=== PATIENT | female | born 1965 | race African-American/Black ===

== ENCOUNTER 2017-06-28 09:02 | Outpatient (CLI) | payer BC ==
--- NOTE | ~2017-06-28 | CN ---
PATIENT NAME:DILLON HENRIQUEZ MEDICAL RECORD: [id number] : 63 LOCATION:[facility] ADMIT DATE: ACCOUNT: [id number] CONSULTING PHYSICIAN: CHRISTIAN OQUENDO MD REFERRING PHYSICIAN: CHELSEA BOX MD DATE OF CONSULTATION: 06/28/2017 ADMITTING DIAGNOSES: 1. Chest discomfort. 2. Family history of coronary artery disease. HISTORY OF PRESENT ILLNESS: Ms. Henriquez had the onset of severe chest discomfort, very compatible with angina, dull aching, crushing like an elephant sitting on her chest sensation earlier today. It was relieved with nitro, pain is coming back. She has no previous cardiac history, has no previous cardiac evaluation. She does have an IODINE ALLERGY. REVIEW OF SYSTEMS: The patient reports easy bruising but reports no swollen glands. The patient reports no fever, no night sweats, no significant weight gain, no significant weight loss. No significant exercise tolerance. The patient reports no dry eyes, no irritation, no vision change. Patient reports no difficulty hearing and no ear pain. Patient reports no frequent nose bleeds or nose and sinus problems. Patient reports on arm pain on exertion. No shortness of breath while lying down. No history of heart murmur. Patient reports no cough, no wheezing or coughing up blood. Patient reports no abdominal pain, no vomiting. Normal appetite. No diarrhea and not vomiting blood. No nausea and no constipation. Patient reports no incontinence. No difficulty urinating. No hematuria. No increased frequency. Patient reports no muscle aches. No weakness, no arthralgias, no back pain. No swelling of the extremities. Patient reports no abnormal mole, no jaundice, no rashes. Reports no loss of consciousness. No weakness and no numbness. No seizures, dizziness, or headaches. The patient reports no depression, no sleep disturbance, feeling safe in a relationship and no alcohol abuse. Patient reports on fatigue. Reports no runny nose or sinus pressure. No itching, no hives, and no frequent sneezing. PHYSICAL EXAMINATION: GENERAL APPEARANCE: Well-nourished, well-developed, appears stated age. Level of distress, comfortable. PSYCHIATRIC: Mental status, alert, normal affect. Orientation, oriented to time, place and person. EYES: Lids and conjunctiva, noninjected. No discharge, no pallor. ENT: Lips, teeth, gums, normal dentition. Oropharynx, no cyanosis, no pallor. NECK: Carotid arteries, bilateral normal upstroke, no bruits, no thrills. JUGULAR VEINS: No jugular venous pressure or distention. CERVICAL LYMPH NODES: Nontender, nonenlarged. THYROID: Not enlarged. Nontender. No nodules. LUNGS: Respiratory effort, unlabored. CHEST: Normal curvature. No thoracic deformity. No chest wall tenderness. Percussion, resonant. Auscultation, clear. No wheezes, no rales, no rhonchi. CARDIOVASCULAR: Precordial exam, nondisplaced. No heaves or pericardial thrills. Rate and rhythm, regular. Heart sounds, normal S1, normal S2. No S3, no gallop, no rub. Systolic murmur, not heard. Diastolic murmur, not heard. EXTREMITIES: No cyanosis, no edema. Peripheral pulses, full and equal in all extremities, except as noted. No bruits appreciated. CONSULT REPORT [id number] DILLON HENRIQUEZ ABDOMEN: Soft, nondistended. Normal aorta. No bruit. Nontender. No masses. Liver, nontender, no hepatomegaly. Spleen, nontender, no splenomegaly. MUSCULOSKELETAL: No joint tenderness. No joint swelling. No erythema. NEUROLOGICAL: Normal gait, normal strength, normal tone. SKIN: Warm and dry. OVERALL IMPRESSION: We will premedicate for the IODINE ALLERGY. Proceed with coronary angiography. Further care depends upon findings of the angiography. TRANSINT:[id number] Voice Confirmation ID: [id number] DOCUMENT ID: [id number] CHRISTIAN OQUENDO MD at 1148 CC: [id number] DICTATION DATE: 06/28/17 1040 IMAGING TECH: 06/28/17 1052 [facility] [address] [place] [address]
--- NOTE | ~2017-06-28 | HEMODYNAMI ---
PATIENT:DILLON SOLIS MEDICAL RECORD: [id number] : 63 LOCATION:[facility] ADMISSION DATE: 06/28/17 Generatedon:06/28/201713:18 Patient name: DILLON SOLIS Patient #: [id number] SSN: D OB: 1965 Date of study: 06/28/2017 Page: Of Hemodynamic Procedure Report Patient Data Patient Demographics Procedure consent was obtained First Name: DILLON Gender: Female Last Name: WILL : 1965 Patient #: [id number] Age: 51 year(s) Race: Black Additional ID: [id number] Contact details [address]: [address] [place] [address] State: [place] City: [place] Zip code: [address] Past Medical History Allergies: No known allergies Admission Admission Data Admission Date: 06/28/2017 Admission Time: 9:02 Arrival Date: 06/28/2017 Arrival Time: 9:02 Admit Source: Other Insurance Payor: Medicaid Procedure Procedure Types Cath Procedure Diagnostic Procedure LHC LH w/Coronaries Miscellaneous Procedures Procedure Description Procedure Date Procedure Date: 06/28/2017 Procedure Start Time: 13:05 Procedure End Time: 13:13 Procedure Staff Name Function Samy Velásquez MD Performing Physician Sugar Bond RN Supervisor [employer] Madalyn Rojas RT Monitor Amada Marcum RN Nurse Noa Delgado RT Scrub Procedure Data Cath Procedure Fluoroscopy Diagnostic fluoroscopy Total fluoroscopy Time: 2 time: 2 min min Diagnostic fluoroscopy Total fluoroscopy dose: 375 dose: 375 mGy mGy Contrast Material Contrast Material Type Amount (ml) Isovue 300 39 Entry Location Entry Primary Successful Side Size Upsize Upsize Entry Closure Duff ccessful Closure Location (Fr) 1 (Fr) 2 (Fr) Remarks Device Remarks Radial Right 6 Fr Mechanical artery Short Compression Estimated blood loss: 5 ml Diagnostic catheters Device Type Used For End Catheter Placement DIAGNOSTIC Nageezi 110cm 5 Multi-vessel Fr catheter ([id number]) Angiography Procedure Complications No complications Procedure Medications Medication Administration Route Dosage Oxygen NC 2 l/min Lidocaine 2% added to field 20 Heparin Flush Bag added to field 2 bags (1000units/500ml NS) 0.9% NaCl I.V. 100 ml/hr Versed I.V. 1 mg Fentanyl I.V. 50 mcg Versed I.V. 1 mg Fentanyl I.V. 50 mcg Radial Cocktail I.A. 1 syringe (Verapomil 2mg/Nitro 400mcg/Heparin 1500units) Versed I.V. 1 mg Fentanyl I.V. 50 mcg Hemodynamics Rest Heart Rate: 80 (bpm) Pressure Samples Time Site Value (mmHg) Purpose Heart Use Rate(bpm) 13:08 LV 55/30,24 Snapshot 142 Snapshots Pre Cath Intra NCS Post Cath Vital Signs Time Heart Resp SPO2 etCO2 NIBP Rhythm Pain Sedation Rate (ipm) (%) (mmHg) (mmHg) Status Level (bpm) 12:56:58 74 14 100 36 115/73(94) NSR 0 (11) 10(A) , No pain 13:01:12 82 14 100 32.3 102/68(94) NSR 0 (11) 10(A) , No pain 13:05:18 83 15 97 29.3 106/73(87) NSR 0 (11) 9(A) , No pain 13:11:41 93 15 96 35.3 104/75(0) NSR 0 (11) 10(A) , No pain Medications Time Medication Route Dose Verified Delivered Reason Notes Effectiveness by by 12:58:47 Oxygen NC 2 l/min Samy Rockie used for Christen Bond RN procedure 12:58:55 Lidocaine 2% added 20ml Samy Buffie for local to vial Christen Bond RN anesthetic field 12:59:02 Heparin Flush added 2 bags Samy Buffie used for Bag to Christen Bond RN procedure (1000units/500ml field NS) 12:59:10 0.9% NaCl I.V. 100 Samy Buffie Per ml/hr Christen Bond RN physician 12:59:19 Versed I.V. 1 mg Samyboo Rockie for sedation Christen Bodn RN 12:59:25 Fentanyl I.V. 50 mcg Samy Wooten for sedation Christen Bond RN 13:04:35 Versed I.V. 1 mg Samy Rockie for sedation Christen Bond RN 13:04:38 Fentanyl I.V. 50 mcg Samy Wooten for sedation Christen Bond RN 13:07:16 Radial Cocktail I.A. 1 Samy Pablo for (Verapomil syringe Christen Velásquez MD vasodilation 2mg/Nitro 400mcg/Heparin 1500units) 13:08:08 Fentanyl I.V. 50 mcg Samy Wooten for sedation Christen Bond RN 13:08:50 Versed I.V. 1 mg Samy Wooten for sedation Christen Bond RN Procedure Log Time Note 12:32:52 Sugar Bond RN sent for patient. Start room use. 12:32:53 Time tracking: Regular hours 12:32:57 Plan of Care:Hemodynamics will remain stable., Cardiac rhythm will remain stable., Comfort level will be maintained., Respiratory function will remain adequate., Patient/ family verbilizes understanding of procedure., Procedure tolerated without complication., Recovers from procedure without complications.. 12:39:28 Diagnostic Cath Status : Emergency 12:39:39 Admit Source: Other 12:41:39 Arrival Date: 06/28/2017 9:02:00 AM 12:41:46 Insurance Payor : Medicaid 12:50:33 Patient received from ED to CCL 2 Alert and oriented. Tansferred to table in Supine position. 12:50:34 Warm blankets applied, and devaughn hugger turned on for patient comfort. 12:50:34 Correct patient and procedure confirmed by team. 12:50:35 Signed procedure consent form obtained from patient. 12:50:36 ECG and BP/O2 sat monitors applied to patient. 12:55:53 Vital chart was started 12:55:57 Rhythm: sinus rhythm 12:55:58 Full Disclosure recording started 12:56:07 H&P Date Dictated: 06/28/2017 Within 30 days and on chart., ER History on chart.. 12:56:08 Pre-procedure instructions explained to patient. 12:56:09 Pre-op teaching completed and patient verbalized understanding. 12:56:10 Family in waiting room. 12:56:13 Patient NPO since Midnight. 12:56:32 Patient allergic to No known allergies 12:56:36 Is the patient allergic to Iodine/contrast media? Yes. 12:56:43 Was the patient premedicated? Yes 12:56:45 Is patient on blood thinner?No 12:56:47 Patient diabetic? No. 12:56:50 Previous problem with sedation/anesthesia? No ? 12:56:51 Snore? Yes 12:56:52 Sleep apnea? No 12:56:53 Deviated septum? No 12:56:54 Opens mouth fully? Yes 12:56:55 Sticks out tongue? Yes 12:56:57 Airway obstruction? No ? 12:56:59 Dentures? Yes in 12:57:02 Pre procedure: right dorsailis pedis pulse 2+ Normal; easily identifiable; not easily obliterated 12:57:05 Modified Jerardo's test Ulnar < 7 seconds 12:57:07 Patient pain scale 0/10 ?. 12:57:21 IV patent on arrival in left forearm with 0.9% NaCl at [facility]. 12:57:24 Lab results completed and on chart. 12:57:27 Right Radial & Right Groin area was prepped with chlora-prep and draped in sterile fashion 12:57:28 Alarms reviewed by R. N. 12:57:28 Sharps counted by scrub and verified by R.N. 12:57:31 Use device set Radial Dx or PCI 12:57:32 ACIST Syringe (63658) opened to sterile field. 12:57:32 Medline Cath Pack ([id number]) opened to sterile field. 12:57:33 Bag Decanter (2002S) opened to sterile field. 12:57:33 SHEATH 6FR Slender ([id number]) opened to sterile field. 12:57:33 DIAGNOSTIC WIRE .035 260cm J wire (589646) opened to sterile field. 12:57:34 ACIST Hand Control (53279) opened to sterile field. 12:57:34 ACIST Manifold (01929) opened to sterile field. 12:57:36 Tegaderm 4 x 4 (1626W) opened to sterile field. 12:57:37 MBrace Wrist Support ([id number]) opened to sterile field. 12:58:45 Physician arrived 12:58:45 --------ALL STOP TIME OUT------ 12:58:46 Final Timeout: patient, procedure, and site verified with staff and physician. All members of the team are in agreement. 12:58:47 Oxygen 2 l/min NC was administered by Buffie Bond RN; used for procedure; 12:58:48 Right Radial & Right Groin site verified by team. 12:58:50 Physical assessment completed. ASA score P 2 - A patient with mild systemic disease as per Samy Velásquez MD. 12:58:55 Lidocaine 2% 20ml vial added to field was administered by Sugar Bond RN; for local anesthetic; 12:58:55 Sedation plan: IV Moderate Sedation Medication:Versed, Fentanyl 12:59:02 Heparin Flush Bag (1000units/500ml NS) 2 bags added to field was administered by Sugar Bond RN; used for procedure; 12:59:10 0.9% NaCl 100 ml/hr I.V. was administered by Sugar Bond RN; Per physician; 12:59:19 Versed 1 mg I.V. was administered by Sugar Bond RN; for sedation; 12:59:25 Fentanyl 50 mcg I.V. was administered by Sugar Bond RN; for sedation; 13:01:34 Zero performed for pressure channel P1 13:01:39 Zero performed for pressure channel P1 13:01:50 Baseline sample Acquired. 13:04:35 Versed 1 mg I.V. was administered by Sugar Bond RN; for sedation; 13:04:38 Fentanyl 50 mcg I.V. was administered by Sugar Bond RN; for sedation; 13:05:48 Procedure started. 13:05:59 Local anesthetic to right radial artery with Lidocaine 2% by Samy Velásquez MD.INITIAL ACCESS ONLY 13:06:26 A 6 Fr Short sheath was inserted into the Right Radial artery 13:06:43 A DIAGNOSTIC Nageezi 110cm 5 Fr catheter (610206) was advanced over the wire and used for Multi-vessel Angiography. 13:07:16 Radial Cocktail (Verapomil 2mg/Nitro 400mcg/Heparin 1500units) 1 syringe I.A. was administered by Samy Velásquez MD; for vasodilation; 13:08:08 Fentanyl 50 mcg I.V. was administered by Sugar Bond RN; for sedation; 13:08:40 LV hemodynamics recorded. 13:08:40 LV gram done using ZALDIVAR 13:08:45 EF : 60 % 13:08:50 Versed 1 mg I.V. was administered by Sugar Bond RN; for sedation; 13:08:55 RCA angiography performed. 13:09:04 Injector settings: Ml/sec: 3, Volume: 6, 13:09:27 Catheter removed. 13:10:17 GUIDE 6FR XBLAD 3.5 catheter ([id number]) opened to sterile field. 13:10:30 LCA angiography performed. 13:10:34 Injector settings: Ml/sec: 3, Volume: 6, 13:10:56 Catheter removed. 13:11:07 TR BAND Standard ([id number]) opened to sterile field. 13:11:18 Sheath removed intact; hemostasis achieved with Mechanical Compression to the Right Radial artery. 13:11:20 Procedure ended.(Physican Out) 13:11:51 Fluoroscopy time 02.00 minutes. 13:11:57 Fluoroscopy dose: 375 mGy 13:11:57 Flurop Dose total: 375 13:12:02 Contrast amount:Isovue 300 39ml. 13:12:03 Sharps counted by scrub and verified by R.N. 13:12:06 TR band inflated with 10cc of air. 13:12:15 Insertion/operative site no bleeding no hematoma. 13:12:22 Post right radial artery:stable 13:12:24 Post Procedure Pulses reassessed and unchanged 13:12:35 Post procedure rhythm: unchanged. 13:12:37 Estimated blood loss: 5 ml 13:12:39 Post procedure instruction explained to patient.Patient verbalizes understanding. 13:12:39 Patient needs reinforcement of post procedure teaching. 13:13:02 Procedure type changed to Cath procedure, Diagnostic procedure, LHC, LHC w/Coronaries, Miscellaneous Procedures 13:13:04 Procedure and supply charges have been captured, reviewed, submitted and are correct. 13:13:08 Procedure Complication : No complications 13:13:11 Vital chart was stopped 13:13:11 See physician's report for complete and final results. 13:13:37 Report given to Pre/Post Procedure Room. 13:13:40 Patient transfered to Pre/Post Procedure Room with Stretcher. 13:13:42 Full Disclosure recording stopped 13:13:45 End room use (Document Last) 13:14:42 Procedure ended. Device Usage Item Name Manufacture Quantity Catalog Hospital Part Current Minima l Lot# / Number Charge Number Stock Stock Serial# Code ACIST Acist 1 27321 [id number] 129723 458555 20 PlantSense (44704) Systems Inc Medline Cath Cardinal 1 [id number] 125108 17244 758336 5 Pack Health ([id number]) Bag Decanter Microtek 1 2001S 586683 81084 466885 5 (2001S) Medical Inc. SHEATH 6FR Terumo 1 [id number] 859104 536302 210617 40 Slender ([id number]) DIAGNOSTIC St Saurabh 1 722850 177494 242785 095048 30 WIRE .035 260cm J wire (779510) ACIST Hand Acist 1 66900 005669 159864 585281 5 Control Medical (14860) Systems Inc ACIST Acist 1 71206 445195 599740 318649 5 Manifold Medical (24982) Systems Inc Tegaderm 4 x 3M 1 1626W 794730 165968 182078 5 4 (1626W) MBrace Wrist Advanced 1 140-0250-00 865258 45446 931483 5 Support Vascular ([id number]) Dynamics DIAGNOSTIC Terumo 1 40-3003 433587 246667 112954 5 Nageezi 110cm 5 Fr catheter (024397) GUIDE 6FR Cardinal 1 [id number] 640408 597141 565581 10 XBLAD 3.5 Health catheter (69618101) TR BAND Terumo 1 [id number] 925538 579309 278874 40 Standard ([id number]) Signature Audit [place] Stage Time Signature Unsigned Intra-Procedure 06/28/2017 Madalyn Rojas 1:18:30 PM RT(R) Signatures Monitor : Madalyn Rojas RT Signature : Date : Time : [facility] [address] [place] [address]
--- NOTE | ~2017-06-28 | OP ---
PATIENT NAME: DILLON SOLIS MEDICAL RECORD: [id number] :63 LOCATION:[facility] ADMISSION DATE: SURGEON: CHRISTIAN OQUENDO MD DATE OF OPERATION: 06/28/2017 PROCEDURES: 1. Left heart catheterization. 2. Selective coronary angiography. 3. Left ventriculogram. INDICATION: Chest pain of unknown etiology. PROCEDURE IN DETAIL: After informed consent was obtained and after detailed explanation of risks, benefits as well as alternative therapies, the patient elected to proceed with angiogram and heart catheterization. The right radial area was prepped and draped in normal sterile fashion. Right radial artery was cannulated via modified Seldinger technique with placement of 5-Hebrew sheath. All catheters exchanged through this sheath. FINDINGS: Left ventriculogram was performed in standard 30-degree ZALDIVAR view, reveals good cardiac wall motion throughout all segments. Overall ejection fraction estimated 60%. SELECTIVE CORONARY ANGIOGRAPHY: Left main, left anterior descending, left circumflex, and right coronary artery are all smooth-walled vessels with no angiographic evidence of coronary artery disease. OVERALL IMPRESSION: No angiographic evidence of coronary artery disease. Normal left heart pressures. Chest pain is noncardiac in etiology. No further cardiac workup needs to be ascertained. TRANSINT:[id number] Voice Confirmation ID: [id number] DOCUMENT ID: [id number] CHRISTIAN OQUENDO MD CC: [id number] DICTATION DATE: 06/28/17 1314 LEARNING ENGINEER: 06/28/17 1320 [facility] [address] [place] [id number]
[2017-06-28 09:43] LABS: BASOPHILS 0.3 % (0-2); EOSINOPHILS 1.2 % (0-7); HEMATOCRIT 35.3 % (36.0-48.0); HEMOGLOBIN 11.3 g/dL (12-16); IMMATURE GRANULOCYTES 0.2 % (0-5); LYMPHOCYTES 19.9 % (15-50); MCH 27.8 pg (26.0-34.0); MCV 86.9 fL (80.0-100.0); MONOCYTES 5.8 % (2-11); NEUTROPHILS 72.6 % (40-80); PLATELET COUNT 205 10x3/uL (130-400); RBC 4.06 10x6/uL (4.00-5.40); WBC 5.8 10x3/uL (4.8-10.8)
[2017-06-28 09:56] LABS: ALBUMIN 3.8 g/dL (3.4-5.0); ALKALINE PHOSPHATASE 91 U/L (46-116); ALT (SGPT) 28 U/L (10-68); BILIRUBIN - TOTAL 0.25 mg/dL (0.2-1.3); CALC OSMOLALITY 276 mosm/kg (275-300); CALCIUM 9.6 mg/dL (8.5-10.1); CARBON DIOXIDE 20.4 mmol/L (21.0-32.0); CHLORIDE - SERUM 106 mmol/L (98-107); CREATININE - SERUM 1.4 mg/dL (0.6-1.3); GLUCOSE 96 mg/dL (74-106); POTASSIUM - SERUM 5.2 mmol/L (3.5-5.1); PROTEIN - SERUM 8.4 g/dL (6.4-8.2); SODIUM 135 mmol/L (136-145); UREA NITROGEN 33 mg/dL (7-18); eGFR NON AFRICAN AMERICAN 42 mL/min (90-120)
[2017-06-28 10:08] LABS: CHOLESTEROL, TOTAL 238 mg/dL (0-200); CKMB 0.4 U/L (0.0-3.6); CREATINE KINASE 220 UL (21-215); HDL CHOLESTEROL 59 mg/dL (32-96); LDL CHOLESTEROL 162 mg/dL (0-100); LDL-HDL RATIO 2.7 ratio (1.5-3.5); TRIGLYCERIDE 86 mg/dL (30-200); TROPONIN-I < 0.017 ng/mL (0.000-0.060)
[2017-06-28] MEDS ORDERED: DYAZIDE 37.5/251 CAP PO (13:57)
[2017-06-28] MEDS ORDERED: DICLOFENAC SODI50 MG PO (13:57)
== END 2017-06-28 15:40 | disposition home or self-care (01) ==
LOC: D.ER 09:02 → D.CATH 09:02 → EDSTATUS 12:00 → D.CATH 15:40
PROVIDERS: Emergency Medicine
DX: R07.9 Chest pain, unspecified (principal); Z82.49 Family history of ischemic heart disease and other diseases of the circulatory system; Z01.812 Encounter for preprocedural laboratory examination

== ENCOUNTER 2017-09-16 10:47 | Outpatient (CLI) | payer BC ==
[~2017-09-16 10:47] MED LIST: DICLOFENAC SODI50 MG PO; DYAZIDE 37.5/251 CAP PO
== END 2017-09-16 23:00 ==
LOC: D.CATH 10:47
DX: I20.0 Unstable angina (principal); R94.30 Abnormal result of cardiovascular function study, unspecified; Z01.810 Encounter for preprocedural cardiovascular examination; Z01.811 Encounter for preprocedural respiratory examination; Z01.812 Encounter for preprocedural laboratory examination; Z53.9 Procedure and treatment not carried out, unspecified reason

== ENCOUNTER 2019-09-02 10:05 | Emergency (ER) | payer BC ==
[~2019-09-02] VITALS: Ht 170.2 cm; Wt 136.4 kg
[2019-09-02 10:27] VITALS: BP 138/74; Ht 170.2 cm; Wt 136.4 kg
[2019-09-02] MEDS ORDERED: CYCLOBENZAPRINE10 MG PO (10:56)
[2019-09-02] MEDS ORDERED: PREDNISONE10 MG PO (10:56)
[2019-09-02] MEDS ORDERED: GABAPENTIN100 MG PO (10:56)
== END 2019-09-02 12:02 | disposition home or self-care (01) ==
LOC: D.ER 10:05
DX: M79.641 Pain in right hand (principal); M06.9 Rheumatoid arthritis, unspecified; M25.531 Pain in right wrist

== ENCOUNTER 2019-09-11 09:00 | Outpatient (CLI) | payer BC ==
[2019-09-02 10:27] VITALS: BMI 47.1
[~2019-09-11 09:00] MED LIST changes: +CYCLOBENZAPRINE10 MG PO; +GABAPENTIN100 MG PO; +PREDNISONE10 MG PO
== END 2019-09-11 10:00 | disposition home or self-care (01) ==
LOC: D.MAMMO 09:00
PROVIDERS: ATTEND Nurse Practitioner Family
DX: Z12.31 Encounter for screening mammogram for malignant neoplasm of breast (principal)